=== PATIENT | female | born 1990 | race Two or more races ===

== ENCOUNTER 2020-12-25 15:13 | Emergency (ER) | payer OTHER ==
[~2020-12-25] VITALS: Ht 154.9 cm; Wt 71.7 kg
[2020-12-25] MEDS ORDERED: VITAMIN D310 MCG/1 M PO (15:54)
== END 2020-12-25 22:02 | disposition home or self-care (01) ==
LOC: ER 15:13
DX: E86.0 Dehydration (principal); N20.0 Calculus of kidney; B96.0 Mycoplasma pneumoniae [M. pneumoniae] as the cause of diseases classified elsewhere